=== PATIENT | female | born 2000 | race Hispanic/Latino ===

== ENCOUNTER 2018-02-08 12:33 | Emergency (ER) | payer OTHER ==
[2018-02-08] MEDS ORDERED: Acetaminophen 325 MG TAB ONE (12:48)
--- NOTE | 2018-02-08 13:27 | RAD ---
CHEST 2 VIEWS: HISTORY: Cough. COMPARISON: None. FINDINGS: Normal cardiac silhouette. The lungs and pleural spaces are clear. No pneumothorax or osseous abnor malities. IMPRESSION: No acute cardiopulmonary process. POS: [facility]
== END 2018-02-08 13:26 | disposition home or self-care (01) ==
LOC: SCSER 12:33
DX: B34.9 Viral infection, unspecified (principal)
CPT/HCPCS: 71046; 87804

== ENCOUNTER 2018-06-11 17:38 | Emergency (ER) | payer OTHER ==
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
== END 2018-06-11 20:41 | disposition home or self-care (01) ==
LOC: ERS 17:38
DX: S06.0X0A Concussion without loss of consciousness, initial encounter (principal); V89.2XXA Person injured in unspecified motor-vehicle accident, traffic, initial encounter
CPT/HCPCS: 70450

== ENCOUNTER 2020-07-08 10:14 | Emergency (ER) | payer OTHER | END 2020-07-08 11:11 | disposition home or self-care (01) | LOC: ERS 10:14 | DX: J30.9 Allergic rhinitis, unspecified (principal) | CPT/HCPCS: 99283 ==